=== PATIENT | male | born 1990 | race Two or more races ===

== ENCOUNTER 2025-02-14 11:53 | Emergency (ER) | payer MEDICAID, SELFPAY ==
[2025-02-14 11:54] VITALS: BMI 30.4
--- NOTE | 2025-02-14 12:15 | EKG_ITS ---
[facility] Test Date: 2025-02-14 Pat Name: DEYSI HARDING Department: Room: - Gender: Male [employer] Att[employer]: : 1990 Requested By: Deacon Monroe (YIFAN) Order Number: [id number] Reading MD: Deacon Monroe (YIFAN) Measurements Intervals [place] Rate: 67 P: 21 NM: 134 QRS: 5 QRSD: 110 T: 22 QT: 373 QTc: 396 Interpretive Statements SINUS RHYTHM WITH SINUS ARRHYTHMIA No previous ECG available for comparison /store/S0/[id number]/ecg/[id number].pdf
--- NOTE | 2025-02-14 12:15 | XR_ITS ---
Examination: CT brain head without contrast. 2-D sagittal coronal reconstructions Date and time of exam:February 14, 2025 1223 hours Patient's: Dizziness lightheadedness today CTDI: vol (mGy):55 DLP: (mGycm):1165 Technique: Multiple CT axial sections of the brain have been obtained, 5 mm slice thickness. Contrast has not been administered. 2-D sagittal, coronal reconstructions have been obtained Low dose protocols were performed. One or more of the following dose reduction techniques were used; automated exposure control, adjustment of the mA and/or KV according to patient size, use of iterative reconstruction technique. Findings: No significant ventricular enlargement. Intra-axial or extra-axial hemorrhage density is not seen. No mass effect or midline shift Basal cisterns are not remarkable. Fourth ventricle is midline. Cranial vault intact. Impression: Negative for acute hemorrhage, mass effect or midline shift Advise clinical correlation follow-up accordingly
--- NOTE | 2025-02-14 12:15 | XR_ITS ---
Examination: PA lateral chest 2 views TECHNIQUE: Upright PA lateral chest 2 views Date and time: February 14, 2025 1240 hours INDICATIONS: Acute chest pain today. FINDINGS: Normal heart size Lungs are clear. The osseous structures are intact IMPRESSION: No active disease
[2025-02-14 12:33] VITALS: BP 127/85; PULSE 79; RESP 20; TEMP 36.4; O2SAT 97
--- NOTE | 2025-02-14 12:43 | PD.EDRME ---
Rapid Medical Screening Exam RME Arrival date/time: 02/14/25 11:53 34-year-old male presents to the emergency department today for complaints of dizziness Chief Complaint: Dizziness Vital signs: Vital Signs Temperature 97.5 F 02/14/25 12:33 Pulse Rate 79 02/14/25 12:33 Respiratory Rate 20 02/14/25 12:33 Blood Pressure 127/85 H 02/14/25 12:33 Pulse Oximetry (%) 97 02/14/25 12:33 Oxygen Delivery Method Room Air 02/14/25 12:33
[2025-02-14 12:46] LABS: Basophils % (Auto) 0 % (0-2.5); Eosinophils # (Auto) 0.1 Thou/mm3 (0.0-0.5); Eosinophils % (Auto) 1 % (0-10); Hematocrit 44.6 % (41.0-53.0); Hemoglobin 16.2 g/dL (13.5-16.0); Immature Granulocytes % (Auto) 0 % (0-0); Immature Granulocytes Auto 0.03 Thou/mm3 (0.00-0.00); Lymphocytes % (Auto) 22 % (10-50); Mean Corpuscular HGB Conc 36.3 g/dl (31.0-37.0); Mean Corpuscular Hemoglobin 30.9 pg (25.0-35.0); Mean Corpuscular Volume 85 fL (80-100); Monocytes # (Auto) 0.5 Thou/mm3 (0.0-0.8); Monocytes % (Auto) 6 % (0-12); Neutrophils # (Auto) 6.4 Thou/mm3 (1.8-7.7); Neutrophils % (Auto) 71 % (37-80); Nucleated Red Blood Cell % 0 /100 WBC (0); Platelet Count 306 Thou/mm3 (140-440); RDW Standard Deviation 35.9 fL (35.1-43.9); Red Blood Count 5.25 Miln/mm3 (4.50-5.90)
[2025-02-14 13:03] LABS: Alanine Aminotransferase 42 U/L (10-49); Albumin, Serum 4.9 gm/dL (3.5-5.0); Alkaline Phosphatase 88 U/L (46-116); Anion Gap 10 (7-16); Aspartate Amino Transferase 26 U/L (0-34); BUN/Creatinine Ratio 8 Ratio (12-20); Bilirubin,Total 0.9 mg/dL (0.3-1.2); Blood Urea Nitrogen 8 mg/dL (9-23); Calcium 9.3 mg/dL (8.3-10.6); Calcium (Corrected) 9.3 mg/dL (8.5-10.1); Carbon Dioxide 26.4 mMol/L (20.0-31.0); Chloride 105 mMol/L (98-107); Estimated Creatinine Clearance 112.8 mL/min (>60); Globulin 2.4 gm/dL (2.3-3.5); Glucose 106 mg/dL (74-106); Osmolality,Calculated 279 (275-295); Potassium 3.8 mMol/L (3.4-5.1); Sodium 141 mMol/L (136-145); Total Protein 7.3 gm/dL (5.7-8.2); Troponin I < 0.002 ng/mL (0.0-0.045); eGFR > 60 See Note
--- NOTE | 2025-02-14 13:36 | PD.EDRME ---
Rapid Medical Screening Exam RME Arrival date/time: 02/14/25 11:53 02/14/25 11:53 34-year-old male presents to the emergency department today for complaints of dizziness Chief Complaint: Dizziness Time Seen by Provider: 02/14/25 13:28 Vital signs: Vital Signs Temperature 97.5 F 02/14/25 12:33 Pulse Rate 79 02/14/25 12:33 Respiratory Rate 20 02/14/25 12:33 Blood Pressure 127/85 H 02/14/25 12:33 Pulse Oximetry (%) 97 02/14/25 12:33 Oxygen Delivery Method Room Air 02/14/25 12:33 RME Narrative: 02/14/25 11:53 34-year-old male presents to the emergency department today for complaints of dizziness
--- NOTE | 2025-02-14 13:37 | PD.EDDIZZY ---
ED Dizzyness RME/HPI General Chief Complaint: Dizziness Stated Complaint: DIZZINESS SINCE 0800 Time Seen by Provider: 02/14/25 13:28 Arrival date/time: 02/14/25 11:53 This is a case of 34 year old male came in with dizziness today assocaited with frontal headache and nausea for 1 day denies any injury nor trauma denies any numbness weakness nor tingling sensation Limitations: no limitations RME / HPI RME / HPI Narrative: 02/14/25 11:53 34-year-old male presents to the emergency department today for complaints of dizziness Related Data Previous Rx's ?Medication ?Instructions ?Recorded meclizine 25 mg tablet 25 mg PO TID PRN dizziness #30 tabs 02/14/25 ondansetron 4 mg disintegrating 4 mg PO Q8H PRN nausea and 02/14/25 tablet vomiting #20 tabs Allergies Allergy/AdvReac Type Severity Reaction Status Date / Time No Known Allergies Allergy Verified 02/14/25 11:54 Review of Systems Review of Systems Systems Reviewed: All systems reviewed, normal except as documented Constitutional Constitutional: Reports as per HPI Eyes Eyes: Denies blurry vision, Denies change in vision and Denies decreased night vision Cardiovascular Cardiovascular: Reports as per HPI, Denies chest pain, Denies chest pain at rest, Denies chest pain with activity, Denies dyspnea and Denies dyspnea on exertion Respiratory Respiratory: Reports as per HPI, Denies chest congestion, Denies cough, Denies dyspnea and Denies dyspnea on exertion Gastrointestinal Gastrointestinal: Reports as per HPI, Denies abdominal pain, Denies belching, Denies bloating, Denies coffee ground emesis, Denies constipation, Denies cramping, Denies dyspepsia, Reports nausea and Denies vomiting Musculoskeletal Musculoskeletal: Reports as per HPI Past Medical History Past Medical History CARDIAC: Negative Congestive Heart Failure RESPIRATORY: Negative Chronic Obstructive Pulmonary Disease (COPD) GENITOURINARY: Negative Renal Disease ENDOCRINE: Negative Diabetes Mellitus Type 1 or Diabetes Mellitus Type 2 Social History SMOKING STATUS: Never smoker ED Exam General Limitations: Present no limitations General appearance: Present alert and in no apparent distress; Absent appears intoxicated, anxious or lethargic Head Head exam: Present atraumatic, normocephalic and normal inspection Eye Eye exam: Present normal appearance, PERRL, EOMI and other (no pappiledema) ENT ENT exam: Present normal exam, normal oropharynx, mucous membranes moist, TM's normal bilaterally and normal external ear exam Neck Neck exam: Present normal inspection, full ROM and trachea midline; Absent tenderness, meningismus, lymphadenopathy or thyromegaly Chest Chest inspection: Present normal inspection, symmetric chest wall rise and other (NRRR no murmur); Absent tenderness Respiratory Respiratory exam: Present normal lung sounds bilaterally; Absent respiratory distress, wheezes, stridor, accessory muscle use or prolonged expiratory phase Cardiovascular Cardiovascular exam: Present regular rate, normal rhythm and normal heart sounds; Absent systolic murmur or diastolic murmur Abdominal Exam Abdominal exam: Present normal bowel sounds; Absent distention, tenderness, guarding, rebound or rigidity Extremities Exam Extremities exam: Present normal inspection, full ROM and normal capillary refill; Absent tenderness Back Exam Back exam: Present normal inspection and full ROM; Absent tenderness or CVA tenderness (R) Neurological Exam Neurological exam: Present alert, oriented X3, CN II-XII intact, normal gait, motor sensory deficit and reflexes normal Expanded Neurological Exam Cranial nerves: Normal: EOM function (II, III, IV, ), facial sensation (V), facial palsy (VII), gag reflex (IX), spinal accessory function (XI) and tongue deviation (XII) Cerebellar function: Normal: finger to nose and heel to aguiar Cerebellar function: Present normal gait Motor strength - LUE: 5/5 Motor strength - RUE: 5/5 Motor strength - LLE: 5/5 Motor strength - RLE: 5/5 Psychiatric Psychiatric exam: Present normal affect and normal mood Course Quality Measures none Orders Category Date Time Status EKG (ED ONLY) *Do not use* NOW Care 02/14/25 12:[address] head/brain wo con Stat Exams 02/14/25 12:15 Completed EKG (ED Only) Stat Exams 02/14/25 12:15 Draft XR chest 2V Stat Exams 02/14/25 12:15 Completed CBC Stat Lab 02/14/25 12:39 Completed Comprehensive Metabolic Panel Stat Lab 02/14/25 12:39 Completed Drug Screen,Urine Stat Lab 02/14/25 13:01 Received Troponin I Stat Lab 02/14/25 12:39 Completed Vital Signs Vital signs: Vital Signs Temperature 97.5 F 02/14/25 12:33 Pulse Rate 79 02/14/25 12:33 Respiratory Rate 20 02/14/25 12:33 Blood Pressure 127/85 H 02/14/25 12:33 Pulse Oximetry (%) 97 02/14/25 12:33 Oxygen Delivery Method Room Air 02/14/25 12:33 Oxygen saturation 97% normal on room air Dizziness MDM Narrative MDM Narrative:: This is a case of 34 year old male came in with dizziness today assocaited with frontal headache and nausea for 1 day denies any injury nor trauma denies any numbness weakness nor tingling sensation Physicial exam showed normal vital signs patient is not tacycardic not tacypneic blood pressure stable afebrile not hypoxic test showed CBC normal no leukocytosis no anemia CMP showed normal no electrolyte imbalance kidney and liver function is normal urinalysis is normal drug screen is pending but I will discharge this patient CT scan showed normal no intracranial findings Physical examination normal HEENT exam is normal lungs is clear no crackles no rales no retraction no stridor heart normal rate regular rhythm no murmur neurological exam is normal cranial nerves II to XII is normal negative Babinski steady gait motor 5/5 sensory +2 reflexes +2 the rest of the neurological exam is normal and unremarkable based on my physical exam patient symtoms suggestive of dizziness possible vertigo I do not think patient is having TIA nor CVA or any cardiopulmonary disease EKG showed normal sinus rhythm heart rate is 67 chest x-ray was ordered by the previous provider and is also normal treatement patient will be discharged with meclizine for dizziness and Zofran for nausea he was advised to take Tylenol or Motrin for headache he was advised to follow-up with PCP in 2 days to be referred to ENT specialist for vertigo and if the dizziness persist or recur he needs to see a neurologist for dizziness patient was disharged with comforatble conditionwith stable condition and pain fee. Walking stable Patient verbalized no further complain with the proposed management plan including the need to follow up with his/her primary care physician and and any specialist fif applicable. Discussed patient for any urgent condition or worsening sx He she needed to go to Emergency room of call 911 Patient is acknowledge the responsibility to follow up as instructed and to monitor his/her symptoms For any persistnce of the symtoms for more than 3-5 days retrun precaution advised Discussed the result of thetest and was given printed dsicahrge instruction Patient data External records reviewed:: [facility] previous records Clinical information provided by:: patient Social determinants that could affect healthcare access:: none Patient has the following chronic illnesses:: No chronic illness How is presenting disease/condition affected by chronic disease/condition?: no chronic disease Evaluation data The following diagnostics were reviewed and interpreted by me:: lab results and radiology exam(s) Lab and/or radiology exams considered but not ordered:: Reviewed and normal Interpretation Summary: Reviewed Medications / Prescriptions Medications or Prescriptions considered but not ordered:: Given Medication administrations:: Given Consultations Consultation(s) initiated? (list below): No Diagnosis Dizziness Differential Diagnosis: benign paroxysmal positional vertigo Most likely diagnosis given after review of the tests above:: Not CVA not TIA Admission Indicated Admission indicated?: not indicated Admission Request Was there a request for admission?: No Admission Attestation Admission request attestation: Not indicated Disposition Plan Disposition Plan: Discharge Discharge Attestation Discharge Attestation: The patient and all family members were given an opportunity to ask questions and understood the discharge instructions. Discharge instructions specifically effects, indications for sooner follow up or return to the emergency department, and the expected course of current diagnosis. Patient condition: Stable Discharge Plan Plan Patient Disposition: HOME (Self Care) Patient condition on transfer: Stable Prescriptions/Referrals Prescriptions/Med Rec: New meclizine 25 mg tablet 25 mg PO TID PRN (Reason: dizziness) Qty: 30 0RF ondansetron 4 mg tablet,disintegrating 4 mg PO Q8H PRN (Reason: nausea and vomiting) Qty: 20 0RF Problem List Clinical Impression: Dizziness, Vertigo Patient/Caregiver Discharge Instructions Education Materials: Vertigo Medicine Tx, Vertigo Staying Safe, ED Dizziness, Uncertain Cause Additional Instructions: follow up with PCPin 2 days for reevalaution and to be referred to ENT for vertigo and if there is persistnet dizziness need for see a neurologist for dizziness keep hydrated Print Language: [place] Stand Alone Forms: Maria G Award Info., Patient Portal Info Letter PA/TRAVEL DIRECTOR Supervising Physician PA/TRAVEL DIRECTOR Supervising Physician: delfin
[2025-02-14 13:57] LABS: Amphetamine/Methamp Scrn,U Negative (Negative); Barbiturate Screen,Urine Negative (Negative); Benzodiazepines Screen,Urine Negative (Negative); Benzoylecgonine Screen, Ur Positive (Negative); Fentanyl Screen,Urine Negative (Negative); Opiate Screen,Urine Negative (Negative); THC Screen,Urine Positive (Negative)
== END 2025-02-14 14:13 | disposition home or self-care (01) ==
LOC: SERX 13:52
PROVIDERS: Nurse Practitioner Primary Care; Emergency Provider Emergency Medicine
DX: R42 Dizziness and giddiness (principal)
CPT/HCPCS: 36415; 70450; 71046; 80053; 80307; 84484; 85025; 93005; 99284